=== PATIENT | male | born 1930 | race Caucasian/White ===

== ENCOUNTER → 2017-07-29 | Outpatient (CLI) | payer OTHER ==
[~2017-07-29] MED LIST: CEPH500C3 PO; MEDR4PAK3 PO; Z.0.NO CURRENT MEDS; ZYRT10TA12 PO
== END ==
LOC: CPRE 09:09
PROVIDERS: ATTEND Orthopaedic Surgery Sports Medicine
DX: Z01.818 Encounter for other preprocedural examination (principal); M17.11 Unilateral primary osteoarthritis, right knee